=== PATIENT | male | born 1985 | race African-American/Black ===

== ENCOUNTER 2023-08-24 11:13 | Emergency (ER) | payer OTHER ==
[~2023-08-24] VITALS: Ht 175.3 cm; Wt 84.1 kg
[2023-08-24] MEDS ORDERED: IBUPROFEN 800 MG TAB PO ONE (16:00)
[2023-08-24 16:14] VITALS: BP 128/79; TEMP 98.2; O2SAT 99
== END 2023-08-24 16:15 | disposition home or self-care (01) ==
LOC: M ED 11:13
DX: S97.121A Crushing injury of right lesser toe(s), initial encounter (principal); W22.8XXA Striking against or struck by other objects, initial encounter; Y92.009 Unspecified place in unspecified non-institutional (private) residence as the place of occurrence of the external cause; Y93.89 Activity, other specified; Y99.9 Unspecified external cause status